=== PATIENT | male | born 1955 | race Caucasian/White ===

== ENCOUNTER 2018-11-18 00:23 | Outpatient (CLI) | payer MEDICAID, SELFPAY ==
--- NOTE | 2018-11-18 10:10 | DI.US_ITS ---
SYMPTOMS/DIAGNOSIS: RLQ MASS, R19.03, ? ENCASED SEROMA VS RECURRENCE SOFT TISSUE ULTRASOUND: Ultrasound was performed to evaluate a palpable abnormality of the right inguinal region. Ultrasound shows a 30 x 24 x 22 mm in diameter cystic mass which appears to have no surrounding increased vascular flow. CONCLUSION: Indeterminate cystic mass right groin. No definite recurrent hernia. If clinically indicated, additional evaluation with CT may be considered.
== END 2018-11-18 00:43 ==
PROVIDERS: PCP Neuromusculoskeletal Medicine & OMM; Visit Provider Surgery
DX: R19.03 Right lower quadrant abdominal swelling, mass and lump (principal)
CPT/HCPCS: 76857

== ENCOUNTER 2025-03-27 01:39 | Outpatient (CLI) | payer MEDICARE, MEDICAID, SELFPAY ==
--- NOTE | 2025-03-27 14:58 | DI.RAD_ITS ---
Exam(s) XR FOOT LT COMPLETE EXAM: XR FOOT LT COMPLETE CLINICAL HISTORY: Foot pain,lt m79.672. TECHNIQUE: 2D digital imaging was performed. Three views. COMPARISON: No exams were available for comparison FINDINGS: BONES: No acute fracture is present. No bony destructive lesion is seen. There are severe degenerative changes of the 1st MTP joint, with obliteration of the joint space, prominent periarticular spurring, sclerosis and subchondral cyst formation. There are also degenerative changes at the interphalangeal joint and sesamoid 1st metatarsal head. The distal phalanges of the toes are not well profiled. Heel spurs. JOINTS: No dislocation present. Hammertoe deformities. SOFT TISSUE: Normal. 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 Hammertoe deformities. DATA REPOSITORY: RADIATION DOSE DELIVERED:
== END 2025-03-27 01:59 ==
PROVIDERS: PCP Neuromusculoskeletal Medicine & OMM; Visit Provider Podiatrist
DX: M19.072 Primary osteoarthritis, left ankle and foot (principal); M20.42 Other hammer toe(s) (acquired), left foot; L97.521 Non-pressure chronic ulcer of other part of left foot limited to breakdown of skin; M00.9 Pyogenic arthritis, unspecified; G62.0 Drug-induced polyneuropathy; T45.1X5S Adverse effect of antineoplastic and immunosuppressive drugs, sequela; M20.41 Other hammer toe(s) (acquired), right foot; I73.89 Other specified peripheral vascular diseases; R09.89 Other specified symptoms and signs involving the circulatory and respiratory systems; R60.0 Localized edema; L65.9 Nonscarring hair loss, unspecified; R23.8 Other skin changes; L60.2 Onychogryphosis; L60.8 Other nail disorders; L85.8 Other specified epidermal thickening
CPT/HCPCS: 11055; 11721; 97597; 73630

== ENCOUNTER 2025-03-27 14:04 | Emergency (ER) | payer MEDICARE, MEDICAID, SELFPAY ==
[2025-03-27 14:05] VITALS: BP 149/73; PULSE 72; RESP 18; TEMP 36.6; O2SAT 86
--- NOTE | 2025-03-27 14:24 | NUR.NOTE ---
Nursing Note: After speaking with the PT it became apparent that he came to this emergency department in error while looking to go to the [facility] for a scheduled foot xray. PT had no acute complaint and after asking the PT stated that he did not feel like he should be in the emergency department today. Assisted to [facility] via wheelchair.
== END 2025-03-27 14:24 | disposition other institution (70) ==
LOC: ER 15:27
PROVIDERS: PCP Neuromusculoskeletal Medicine & OMM
DX: Z53.21 Procedure and treatment not carried out due to patient leaving prior to being seen by health care provider (principal)

== ENCOUNTER → 2025-04-19 10:05 | Outpatient (BNVA) | payer MEDICARE, MEDICAID, SELFPAY | PROVIDERS: PCP Neuromusculoskeletal Medicine & OMM; Referring Provider Neuromusculoskeletal Medicine & OMM; Visit Provider Podiatrist | DX: L97.521 Non-pressure chronic ulcer of other part of left foot limited to breakdown of skin (principal); M00.9 Pyogenic arthritis, unspecified; G62.0 Drug-induced polyneuropathy; T45.1X5S Adverse effect of antineoplastic and immunosuppressive drugs, sequela; M20.41 Other hammer toe(s) (acquired), right foot; M20.42 Other hammer toe(s) (acquired), left foot; I73.89 Other specified peripheral vascular diseases | CPT/HCPCS: 97597 ==

== ENCOUNTER → 2025-05-22 10:12 | Outpatient (BNVA) | payer MEDICARE, MEDICAID, SELFPAY | PROVIDERS: PCP Physician Assistant; Referring Provider Physician Assistant; Visit Provider Podiatrist | DX: L84 Corns and callosities (principal); G62.0 Drug-induced polyneuropathy; T45.1X5S Adverse effect of antineoplastic and immunosuppressive drugs, sequela; M20.41 Other hammer toe(s) (acquired), right foot; M20.42 Other hammer toe(s) (acquired), left foot; I73.89 Other specified peripheral vascular diseases; S90.421A Blister (nonthermal), right great toe, initial encounter; X58.XXXA Exposure to other specified factors, initial encounter; R09.89 Other specified symptoms and signs involving the circulatory and respiratory systems; L60.2 Onychogryphosis; L60.8 Other nail disorders; R23.8 Other skin changes; R60.0 Localized edema; L65.9 Nonscarring hair loss, unspecified | CPT/HCPCS: 11056 ==